=== PATIENT | female | born 1960 | race Two or more races ===

== ENCOUNTER → 2021-06-02 | Emergency (ER) | payer OTHER ==
[~2021-06-02] VITALS: Ht 162.6 cm; Wt 73.5 kg
[~2021-06-02] MED LIST: COZAAR25 MG PO
== END | disposition home or self-care (01) ==
LOC: ER 13:36
DX: N39.0 Urinary tract infection, site not specified (principal); I10 Essential (primary) hypertension

== ENCOUNTER 2022-10-29 09:06 | Day surgery (SDC) | payer OTHER | END 2022-10-29 15:10 | disposition home or self-care (01) | LOC: AMB-ENDOS 09:06 | PROVIDERS: ATTEND Colon & Rectal Surgery | DX: R19.4 Change in bowel habit (principal); K57.30 Diverticulosis of large intestine without perforation or abscess without bleeding; K64.8 Other hemorrhoids; Z20.822 Contact with and (suspected) exposure to COVID-19 ==

== ENCOUNTER 2023-01-26 11:58 | Emergency (ER) | payer OTHER ==
[~2023-01-26] VITALS: Ht 162.6 cm; Wt 73.9 kg
[2023-01-26] MEDS ORDERED: [UNRECOGNIZED DRUG - OTHER] (12:36)
[2023-01-26] MEDS ORDERED: HIPREX1 GM (12:40)
[2023-01-26] MEDS ORDERED: CIPRO500 MG PO (14:34)
== END 2023-01-26 14:50 | disposition home or self-care (01) ==
LOC: ER 11:58
DX: R30.0 Dysuria (principal); N39.0 Urinary tract infection, site not specified; Z88.6 Allergy status to analgesic agent